=== PATIENT | male | born 1980 | race Caucasian/White ===

== ENCOUNTER 2017-07-10 18:20 | Emergency (ER) | payer OTHER, BC ==
[2017-07-10] MEDS ORDERED: Ketorolac 10 MG Tab PO ONE (18:21)
[2017-07-10] MEDS ORDERED: Cyclobenzaprine 10 MG Tab PO ONE (18:21)
[2017-07-10 18:26] VITALS: BP 113/79
[2017-07-10] MEDS ORDERED: Ketorolac 60 MG/2 ML SDV IM ONE (18:36)
[2017-07-10] MEDS ORDERED: methylPREDNISolone Sodium Succinate 125 MG/2 ML SDV IM ONE (18:38)
--- NOTE | 2017-07-10 19:05 | EDM.PDOC ---
ED HPI GENERAL MEDICAL PROBLEM - General Chief Complaint: Back Pain or Injury Stated Complaint: mid back pain Time Seen by Provider: 07/10/17 18:55 Source of Information: Reports: Patient History Limitations: Reports: No Limitations - History of Present Illness INITIAL COMMENTS - FREE TEXT/NARRATIVE: Patient working last evening at [employer] and injured back. 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 He states he was able to finish out shift last evening and went to bed this am awakening to severe back pain and muscle spasm. He states he called work and is unable to to move with significant pain in the mid thoracic back region. He denies cauda equna S/S. Pain is exacerbated by movement and bending and relieved by sitting-he has taken ibuprofen at home. He is in for evaluation and treatment. Onset Date: 07/09/17 Onset Time: 19:00 Duration: Constant, Getting Worse Location: Reports: Back, Generalized, Radiates to (Right Flank region) Quality: Reports: Ache, Burning, Sharp, Stabbing Severity: Moderate Improves with: Reports: Rest Worsens with: Reports: Movement Context: Reports: Lifting, Trauma Associated Symptoms: Reports: No Other Symptoms Treatments PACKAGER: Reports: NSAIDS Middle Back Pain Score (Numeric/FACES): 9 - Related Data Allergies Allergy/AdvReac Type Severity Reaction Status Date / Time No Known Allergies Allergy Verified 07/10/17 18:22 Home Meds: Home Meds . [No Known Home Meds] 07/10/17 [History] Past Medical History HEENT History: Reports: None, Sinusitis - Past Surgical History HEENT Surgical History: Reports: Naso-Sinus Surgery GI Surgical History: Reports: Hernia, Inguinal Social & Family History - Tobacco Use Smoking Status *Q: Current Every Day Smoker Years of Tobacco use: 22 Packs/Tins Daily: 1 - Recreational Drug Use Recreational Drug Use: No ED ROS GENERAL - Review of Systems Review Of Systems: See Below Constitutional: Reports: Fatigue HEENT: Reports: No Symptoms Respiratory: Reports: No Symptoms Cardiovascular: Reports: No Symptoms Endocrine: Reports: No Symptoms GI/Abdominal: Reports: No Symptoms : Reports: No Symptoms Musculoskeletal: Reports: Back Pain, Muscle Pain, Muscle Stiffness Skin: Reports: No Symptoms Neurological: Reports: No Symptoms, Difficulty Walking. Denies: Dizziness, Numbness, Paresthesia, Syncope, Tingling Psychiatric: Reports: No Symptoms Hematologic/Lymphatic: Reports: No Symptoms Immunologic: Reports: No Symptoms ED EXAM,LOWER BACK PAIN/INJURY - Physical Exam Exam: See Below Exam Limited By: No Limitations General Appearance: Alert, WD/WN, Moderate Distress Eye Exam: Bilateral Eye: EOMI, PERRL Ears: Normal External Exam Nose: Normal Inspection Throat/Mouth: Normal Inspection Head: Atraumatic, Normocephalic Neck: Normal Inspection, Supple, Non-Tender, Full Range of Motion Respiratory/Chest: No Respiratory Distress, No Accessory Muscle Use Cardiovascular: Normal Peripheral Pulses, Regular Rate, Rhythm, No Edema GI/Abdominal: Soft (Male) Exam: Deferred Rectal (Males) Exam: Deferred Back Exam: Normal Inspection, Decreased Range of Motion, Muscle Spasm, Paraspinal Tenderness Extremities: Normal Inspection, No Pedal Edema, Normal Capillary Refill. No: Cris's Sign Neurological: Alert, Normal Mood/Affect, Normal Dorsiflexion, CN II-XII Intact, Normal Plantar Flexion, Normal Reflexes, No Motor/Sensory Deficits, Oriented x 3 , Abnormal Gait, Difficulty Walking. No: Normal Gait, Straight Leg Raise (L), Straight Leg Raise (R), Saddle Anesthesia DTR - Lower Extremities: 2+: Knee (R), Knee (L), Ankle (R), Ankle (L) Psychiatric: Normal Affect, Normal Mood Skin Exam: Warm, Dry, Intact, Normal Color Lymphatic: No Adenopathy Course - Vital Signs Last Recorded V/S: Last Vital Signs Temp 36.4 C 07/10/17 18:23 Pulse 61 07/10/17 18:23 Resp 20 07/10/17 18:23 BP 113/79 07/10/17 18:23 Pulse Ox 99 07/10/17 18:23 - Orders/Labs/Meds Meds: Medications Discontinued Medications Generic Name Dose Route Start Last Admin Trade Name Johanna PRN Reason Stop Dose Admin Ketorolac Tromethamine 60 mg 07/10/17 18:36 07/10/17 18:48 Toradol IM 07/10/17 18:37 60 mg ONETIME ONE Administration Methylprednisolone Sodium Succinate 125 mg 07/10/17 18:38 07/10/17 18:46 Solu-Medrol IM 07/10/17 18:39 125 mg ONETIME ONE Administration Orphenadrine Citrate 60 mg 07/10/17 18:37 07/10/17 18:48 Norflex IM 07/10/17 18:38 60 mg ONETIME ONE Administration Departure - Departure Time of Disposition: 19:16 Disposition: Home, Self-Care 01 Condition: Good Clinical Impression: Back strain - Discharge Information Instructions: Muscle Strain, [id number], Back Pain, Adult, [id number], Back Injury Prevention, [id number], Pain Medicine Instructions, [id number] Additional Instructions: Patient given Toradol 60 mg IM with Norflex 60 mg and Solumedrol 125 mg IM. Signficant relief from pain. Will advise Rest, Medications take home packs for Flexeril 10 mg ( 4 pack) every 8 hours prn spasm NSAIDs-Toradol 10 mg po TID prn pain (4 pack) Ice to mid back Prevent further injury Physical Therapy evaluation and treatment as indicated. No work for 72 hours. F/U PCP prn. MLP Sign Off - Signature Requirements MLP Sign Off: No - Problem List & Annotations (1) Back strain SNOMED Code(s): 354499029 Code(s): S39.012A - STRAIN OF MUSCLE, FASCIA AND TENDON OF LOWER BACK, INIT Status: Acute Qualifiers: Encounter type: initial encounter Qualified Code(s): S39.012A - Strain of muscle, fascia and tendon of lower back, initial encounter - Problem List Review Problem List Initiated/Reviewed/Updated: Yes - Assessment/Plan Assessment:: Back Strain Plan: Patient given Toradol 60 mg IM with Norflex 60 mg and Solumedrol 125 mg IM. Signficant relief from pain. Will advise Rest, Medications take home packs for Flexeril 10 mg ( 4 pack) every 8 hours prn spasm NSAIDs-Toradol 10 mg po TID prn pain (4 pack) Ice to mid back Prevent further injury Physical Therapy evaluation and treatment as indicated. No work for 72 hours. F/U PCP prn.
[2017-07-10] MEDS ORDERED: Take Home: Cyclobenzaprine 10 MG Tab, 4 Tab Pack PO ONE (19:16)
[2017-07-10] MEDS ORDERED: Take Home: Ketorolac 10 MG Tab, 4 Tab Pack PO ONE (19:16)
== END 2017-07-10 19:25 | disposition home or self-care (01) ==
LOC: CC.ED 18:20
DX: S39.012A Strain of muscle, fascia and tendon of lower back, initial encounter (principal); F17.210 Nicotine dependence, cigarettes, uncomplicated; X50.1XXA Overexertion from prolonged static or awkward postures, initial encounter
CPT/HCPCS: 96372; 99282; A9270; J1885; J2360; J2930

== ENCOUNTER 2017-12-19 00:15 | Emergency (ER) | payer BC, OTHER ==
[2017-12-19] MEDS ORDERED: Amoxicillin/Clavulanate K 875-125 MG Tab PO ONE (00:16)
[2017-12-19] MEDS ORDERED: Acetaminophen/HYDROcodone 325-5 MG Tab PO ONE (00:16)
[2017-12-19 00:28] VITALS: BP 133/93
[2017-12-19] MEDS: Ketorolac 60 MG/2 ML SDV IM ONE (00:53)
[2017-12-19] MEDS: Take Home: Acetaminophen/HYDROcodone 325-5 MG, 2 Tab Pack PO ONE (00:53)
[2017-12-19] MEDS: Take Home: Amoxicillin/Clavulanate K 875-125 MG Tab, 2 Tab Pack PO ONE (00:53)
--- NOTE | 2017-12-19 00:53 | EDM.PDOC ---
ED HPI GENERAL MEDICAL PROBLEM - General Chief Complaint: General Stated Complaint: tooth pain Time Seen by Provider: 12/19/17 00:40 - History of Present Illness INITIAL COMMENTS - FREE TEXT/NARRATIVE: Bennett is a 37 year old male with no significant PMH who presents to the ED with complaints of left lower jaw/tooth pain. He reports the pain has been intermittent for the last week or so, worsening this evening. He reports he has been taking "a lot" of ibuprofen. He does report it takes the edge off but doesn 't relieve the pain. Reports he hasn't seen a dentist in at least a couple years. Denies any other issues or complaints. ROS otherwise negative. Onset Date: 12/13/17 Duration: Getting Worse Location: Reports: Other (left jaw) Quality: Reports: Ache Severity: Severe Improves with: Reports: Medication Associated Symptoms: Reports: No Other Symptoms. 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 Left Gums Pain Score (Numeric/FACES): 8 - Related Data Allergies Allergy/AdvReac Type Severity Reaction Status Date / Time No Known Allergies Allergy Verified 12/19/17 00:19 Home Meds: Home Meds Amoxicillin/Clavulanate K [Augmentin 875-125 MG] 1 tab PO BID 8 Days #16 tablet 12/19/17 [Rx] Past Medical History HEENT History: Reports: None, Sinusitis - Past Surgical History HEENT Surgical History: Reports: Naso-Sinus Surgery GI Surgical History: Reports: Hernia, Inguinal Social & Family History - Family History Family Medical History: Noncontributory - Tobacco Use Smoking Status *Q: Current Every Day Smoker Years of Tobacco use: 22 Packs/Tins Daily: 1 - Caffeine Use Caffeine Use: Reports: Soda - Recreational Drug Use Recreational Drug Use: No ED ROS GENERAL - Review of Systems Review Of Systems: ROS reveals no pertinent complaints other than HPI. ED EXAM, GENERAL - Physical Exam Exam: See Below Exam Limited By: No Limitations General Appearance: Alert, WD/WN, Mild Distress Eye Exam: Bilateral Eye: PERRL Ears: Normal External Exam, Normal Canal, Hearing Grossly Normal, Normal TMs Ear Exam: Bilateral Ear: Auricle Normal, Canal Normal, TM normal Nose: Normal Inspection, Normal Mucosa, No Blood Throat/Mouth: Normal Lips, Normal Teeth, Normal Oropharynx, Normal Voice, No Airway Compromise, Inflammation (left lower molars) Head: Atraumatic, Normocephalic Respiratory/Chest: No Respiratory Distress, Lungs Clear, Normal Breath Sounds, No Accessory Muscle Use, Chest Non-Tender Cardiovascular: Normal Peripheral Pulses, Regular Rate, Rhythm, No Edema, No Gallop, No JVD, No Murmur, No Rub Psychiatric: Normal Affect, Normal Mood Course - Vital Signs Last Recorded V/S: Last Vital Signs Temp 98.5 F 12/19/17 00:20 Pulse 72 12/19/17 00:20 Resp 18 12/19/17 00:20 BP 133/93 H 12/19/17 00:20 Pulse Ox 96 12/19/17 00:20 - Orders/Labs/Meds Orders: Active Orders 24 hr Category Date Time Status Acetaminophen/HYDROcodone [Take Home: Acetaminophen/ Med 12/19/17 00:45 Once HYDROcod, 2 Tab Pack] 3 packet PO ONETIME ONE Amoxicillin/Clavulanate K [Take Home: Amox/Clavulanate Med 12/19/17 00:46 Once 875-12, 2 Tab Pac] 2 packet PO ONETIME ONE Meds: Medications Discontinued Medications Generic Name Dose Route Start Last Admin Trade Name Freq PRN Reason Stop Dose Admin Ketorolac Tromethamine 60 mg 12/19/17 00:44 Toradol IM 12/19/17 00:45 ONETIME ONE Departure - Departure Time of Disposition: 00:51 Disposition: Home, Self-Care 01 Condition: Good Clinical Impression: Dental abscess - Discharge Information Instructions: Dental Abscess Referrals: Provider,Unknown [Primary Care Provider] - Forms: ED Department Discharge Additional Instructions: Meds as directed Will take a total of 10 days of antibiotic (twice daily). Remainder of prescription will be at pharmacy. Alternate Dunlap and ibuprofen as needed for pain. For less severe pain just use Tylenol and ibuprofen. Script for #15 Dunlap sent with patient Warm salt water gargles Alternate ice/heat to affected areas Follow up with dentist MAK - My Orders Last 24 Hours: My Active Orders 12/19/17 00:45 Acetaminophen/HYDROcodone [Take Home: Acetaminophen/HYDROcod, 2 Tab Pack] 3 packet PO ONETIME ONE 12/19/17 00:46 Amoxicillin/Clavulanate K [Take Home: Amox/Clavulanate 875-12, 2 Tab Pac] 2 packet PO ONETIME ONE - Assessment/Plan Last 24 Hours: My Active Orders 12/19/17 00:45 Acetaminophen/HYDROcodone [Take Home: Acetaminophen/HYDROcod, 2 Tab Pack] 3 packet PO ONETIME ONE 12/19/17 00:46 Amoxicillin/Clavulanate K [Take Home: Amox/Clavulanate 875-12, 2 Tab Pac] 2 packet PO ONETIME ONE
== END 2017-12-19 01:00 | disposition home or self-care (01) ==
LOC: CC.ED 00:15
DX: K04.7 Periapical abscess without sinus (principal); F17.210 Nicotine dependence, cigarettes, uncomplicated
CPT/HCPCS: 96372; 99282; A9270; J1885

== ENCOUNTER 2017-12-25 18:27 | Emergency (ER) | payer BC ==
[2017-12-25] MEDS ORDERED: Acetaminophen/oxyCODONE 325-5 MG Tab PO ONE ×2 (18:28→18:59)
[2017-12-25 18:33] VITALS: BP 134/81
[2017-12-25] MEDS ORDERED: Take Home: Acetaminophen/oxyCODONE 325-5 MG, 2 Tab Pack PO ONE (18:59)
[2017-12-25] MEDS ORDERED: Lidocaine 2% Viscous Solution 15 ML Cup PO ONE (19:00)
[2017-12-25] MEDS ORDERED: Aluminum Hydroxide/Magnesium Hydroxide/Simethicone Susp 30 ML Cup PO ONE (19:00)
[2017-12-25] MEDS ORDERED: Aluminum Hydroxide/Magnesium Hydroxide/Simethicone Susp 30 ML Cup ONE (19:03)
[2017-12-25] MEDS ORDERED: Lidocaine 2% Viscous Solution 15 ML Cup ONE (19:03)
--- NOTE | 2017-12-25 19:03 | EDM.PDOC ---
ED HPI GENERAL MEDICAL PROBLEM - General Chief Complaint: ENT Problem Stated Complaint: left lower toothache Time Seen by Provider: 12/25/17 18:46 Source of Information: Reports: Patient History Limitations: Reports: No Limitations - History of Present Illness INITIAL COMMENTS - FREE TEXT/NARRATIVE: This patient is a 37 year old that presents to the ER. Patient reports that for 2 weeks having dental pain left lower back tooth. Patient reports it started having some pain with swelling also about 1 week ago. He saw provider in clinic and put on abx. Patent reports the pain has continued. He saw dentist on Wednesday offered to extract or send to someone else for root canal. He chose to get root canal. Patient has not had this done yet. Patient reports the pain has increased today. Patient reports he is unable to get a hold of dentist to have tooth removed today. Patient reports he will get this done on Wednesday. Patient denies aguilar, dizziness, n, v, d, f, neck pain, neck stiffness. There is no trismus. No evidence of peritonsular abscess. I do not see dental abscess on exam today. Stable. Onset Date: 12/11/17 Duration: Week(s): (2) Quality: Reports: Throbbing Severity: Moderate Improves with: Reports: Other (drinking cold water) Worsens with: Reports: None Associated Symptoms: Denies: Confusion, Chest Pain, Cough, cough w sputum, Diaphoresis, Fever/Chills, Headaches, Loss of Appetite, Malaise, Nausea/Vomiting , Rash, Seizure, Shortness of Breath, Syncope, Weakness Treatments MANAGER CONTRACT: Reports: Aspirin Left Lower Tooth/Teeth Pain Score (Numeric/FACES): 10 - Related Data Allergies Allergy/AdvReac Type Severity Reaction Status Date / Time No Known Allergies Allergy Verified 12/25/17 18:33 Home Meds: Home Meds Amoxicillin/Clavulanate K [Augmentin 875-125 MG] 1 tab PO BID 8 Days #16 tablet 12/19/17 [Rx] Hydrocodone/Acetaminophen [Hydrocodon-Acetaminophen 5-325] 1 tab PO Q6H PRN 08/04 [History] Past Medical History HEENT History: Reports: None, Sinusitis - Past Surgical History HEENT Surgical History: Reports: Naso-Sinus Surgery GI Surgical History: Reports: Hernia, Inguinal Social & Family History - Family History Family Medical History: Noncontributory - Tobacco Use Smoking Status *Q: Current Every Day Smoker Years of Tobacco use: 22 Packs/Tins Daily: 1 - Caffeine Use Caffeine Use: Reports: Soda - Recreational Drug Use Recreational Drug Use: No ED ROS ENT - Review of Systems Review Of Systems: See Below Constitutional: Reports: No Symptoms HEENT: Reports: Dental Pain (left back lower). Denies: Ear Discharge, Ear Pain , Eye Discharge, Eye Pain, Glasses, Hearing Loss, Nosebleed, Nose Pain, Rhinitis , Sinus Problem, Throat Pain, Throat Swelling, Vertigo, Vision Change Respiratory: Reports: No Symptoms Cardiovascular: Reports: No Symptoms Endocrine: Reports: No Symptoms GI/Abdominal: Reports: No Symptoms : Reports: No Symptoms Musculoskeletal: Reports: No Symptoms Skin: Reports: No Symptoms Neurological: Reports: No Symptoms Psychiatric: Reports: No Symptoms Hematologic/Lymphatic: Reports: No Symptoms Immunologic: Reports: No Symptoms ED EXAM, ENT - Physical Exam Exam: See Below Exam Limited By: No Limitations General Appearance: Alert, WD/WN, No Apparent Distress Eye Exam: Bilateral Eye: EOMI, Normal Inspection, PERRL Ears: Normal External Exam, Normal Canal, Hearing Grossly Normal, Normal TMs Nose: Normal Inspection, Normal Mucousa, No Blood Mouth/Throat: Normal Inspection, Normal Gums, Normal Lips, Normal Oropharynx, Dental Tenderness (left back lower. ). No: Dental Abcess, Dental Trauma, Drooling, Dry Mucous Membrane, Gum Swelling, Hoarse Voice, Lip Swelling, Lip Ulcers, Muffled Voice, Oral Ulcers, Perioral Cyanosis, Peritonsillar Mass, Pharyngeal Erythema, Teething, Throat Pain, Throat Swelling, Tongue Swelling, Tonsillar Erythema, Tonsillar Exudates, Tonsillar Swelling, Trismus, Uvular Deviation, Uvular Edema Head: Atraumatic, Normocephalic Neck: Normal Inspection, Supple, Non-Tender, Full Range of Motion. No: Lymphadenopathy (L), Lymphadenopathy (R) Respiratory/Chest: No Respiratory Distress, Lungs Clear, Normal Breath Sounds, No Accessory Muscle Use Cardiovascular: Normal Peripheral Pulses, Regular Rate, Rhythm, No Edema, No Gallop, No JVD, No Murmur, No Rub (Male) Exam: Deferred Rectal (Males) Exam: Deferred Back: Normal Inspection Extremities: Normal Inspection, Normal Range of Motion, Non-Tender, No Pedal Edema, Normal Capillary Refill Neurological: Alert, Oriented Psychiatric: Normal Mood, Anxious Skin: Warm, Dry, Intact, Normal Color, No Rash Lymphatic: No Adenopathy Course - Vital Signs Last Recorded V/S: Last Vital Signs Temp 96.8 F 12/25/17 18:30 Pulse 73 12/25/17 18:30 Resp 20 12/25/17 18:30 BP 134/81 12/25/17 18:30 Pulse Ox 98 12/25/17 18:30 - Orders/Labs/Meds Meds: Medications Discontinued Medications Generic Name Dose Route Start Last Admin Trade Name Johanna PRN Reason Stop Dose Admin Al Hydroxide/Mg Hydroxide 30 ml 12/25/17 19:00 Mag-Al Plus PO 12/25/17 19:01 ONETIME ONE Lidocaine HCl 15 ml 12/25/17 19:00 Xylocaine 2% Viscous PO 12/25/17 19:01 ONETIME ONE Oxycodone/Acetaminophen 3 packet 12/25/17 18:59 Take Home: Acetaminophen/Oxycodon, 2 Tab Pack PO 12/25/17 19:00 ONETIME ONE Oxycodone/Acetaminophen 1 tab 12/25/17 18:59 12/25/17 19:02 Percocet 325-5 Mg PO 12/25/17 19:00 1 tab ONETIME ONE Administration Departure - Departure Time of Disposition: 19:01 Disposition: Home, Self-Care 01 Condition: Fair Clinical Impression: Dental caries, Pain, dental - Discharge Information Instructions: Dental Abscess Referrals: PCP,None [Primary Care Provider] - Forms: ED Department Discharge Additional Instructions: Followup with your primary care provider Return to the ER for worsening of condition or any emergent concerns Increase fluids Continue antibiotic Percocet 5/325mg 1 pill every 6 hours as needed for pain #6 take home IbuProfen over the counter Ice to painful area Cotton balls for numbing to area, use as needed. - Assessment/Plan Plan: PLEASE SEE RN NOTE FOR PFSH.
== END 2017-12-25 19:20 | disposition home or self-care (01) ==
LOC: CC.ED 18:27
DX: K02.9 Dental caries, unspecified (principal); K08.89 Other specified disorders of teeth and supporting structures; F17.210 Nicotine dependence, cigarettes, uncomplicated
CPT/HCPCS: 99282; A9270-GY